=== PATIENT | male | born 1970 | race Two or more races ===

== ENCOUNTER 2021-08-27 10:28 | Day surgery (SDC) | payer OTHER ==
[~2021-08-27] VITALS: Ht 175.3 cm; Wt 104.3 kg
[2021-08-27] MEDS ORDERED: fentaNYL citrate 0.05 MG/ML VIAL ONE (12:39)
[2021-08-27] MEDS ORDERED: LIDOCAINE 2% 100 MG/5 ML UJET TP ONE (12:40)
[2021-08-27] MEDS ORDERED: MIDAZOLAM 5 MG/5 ML VIAL ONE (12:40)
[2021-08-27] MEDS ORDERED: fentaNYL citrate 0.05 MG/ML VIAL IVP ONE (13:50)
== END 2021-08-27 13:55 | disposition home or self-care (01) ==
LOC: MDS 10:28 → MMU 10:29 → MDS 13:55
PROVIDERS: ATTEND Internal Medicine Gastroenterology
DX: Z12.11 Encounter for screening for malignant neoplasm of colon (principal); D12.3 Benign neoplasm of transverse colon; Z86.010 Personal history of colon polyps; F17.210 Nicotine dependence, cigarettes, uncomplicated; Z20.822 Contact with and (suspected) exposure to COVID-19
CPT/HCPCS: 45385; 87426; J3010; J2250